=== PATIENT | male | born 1965 | race Caucasian/White ===

== ENCOUNTER → 2020-02-23 14:40 | Outpatient (CLI) | payer OTHER, SELFPAY ==
[2020-02-23 15:35] LABS: Hemoglobin A1C% w Est Avg Glu 5.9 % (4.0-6.0)
[2020-02-23 15:42] LABS: Alanine Aminotransferase 31 IU/L (<50); Albumin 4.6 g/dL (3.5-5.0); Albumin Globulin Ratio 1.5 (1.0-2.8); Alkaline Phosphatase 73 U/L (38-126); Aspartate Aminotransferase 38 IU/L (17-59); Bilirubin Total 1.1 mg/dL (0.2-1.3); Cholesterol 224 mg/dL (140-199); HDL Cholesterol 59 mg/dL (40-60); HEMOLYSIS < 15 (0-50); LDL Cholesterol Calculated 147 mg/dL (<100); Total Protein 7.6 g/dL (6.3-8.2); Triglycerides 89 mg/dL (35-150)
== END ==
PROVIDERS: PCP Student in an Organized Health Care Education/Training Program; Referring Provider Student in an Organized Health Care Education/Training Program; Visit Provider Student in an Organized Health Care Education/Training Program
DX: R73.9 Hyperglycemia, unspecified (principal); Z83.3 Family history of diabetes mellitus; E78.00 Pure hypercholesterolemia, unspecified; Z79.899 Other long term (current) drug therapy
CPT/HCPCS: 36415; 80061; 80076; 83036

== ENCOUNTER → 2020-10-04 10:33 | Outpatient (CLI) | payer OTHER, SELFPAY ==
[2020-10-04] MEDS: COVID-19 VACC, Ad26(JANSSEN)/PF 0.5 ML IM (10:48)
== END ==
PROVIDERS: PCP Student in an Organized Health Care Education/Training Program; Visit Provider Internal Medicine
DX: Z23 Encounter for immunization (principal)
CPT/HCPCS: 0031A; 91303